=== PATIENT | male | born 1990 | race Caucasian/White ===

== ENCOUNTER 2018-09-30 02:56 | Emergency (ER) | payer OTHER, SELFPAY ==
[2018-09-30] MEDS ORDERED: HYDROcodone/Acetaminophen 5/325 mg Tablet ONE (03:58)
[2018-09-30] MEDS ORDERED: Ibuprofen 800 MG TAB ONE ×2 (03:58→04:01)
--- NOTE | 2018-09-30 08:43 | RAD ---
RIGHT HAND THREE VIEWS: HISTORY: Injury. Right hand pain. FINDINGS: There is an angulated fracture involving the neck of the 5th metacarpal. POS: [facility]
== END 2018-09-30 04:21 | disposition home or self-care (01) ==
LOC: ERS 02:56
DX: S62.336A Displaced fracture of neck of fifth metacarpal bone, right hand, initial encounter for closed fracture (principal); W22.8XXA Striking against or struck by other objects, initial encounter
CPT/HCPCS: 26600